=== PATIENT | male | born 1995 | race Caucasian/White ===

== ENCOUNTER 2017-06-13 11:54 | Emergency (ER) | payer OTHER, BC ==
[2017-06-13 11:58] VITALS: BP 130/83; PULSE 95; TEMP 98; BMI 16.9
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
== END 2017-06-13 12:17 | disposition home or self-care (01) ==
LOC: FER 11:54
DX: Z04.1 Encounter for examination and observation following transport accident (principal); J45.909 Unspecified asthma, uncomplicated; V43.52XA Car driver injured in collision with other type car in traffic accident, initial encounter; Y93.89 Activity, other specified; Y92.410 Unspecified street and highway as the place of occurrence of the external cause
CPT/HCPCS: 99282-25

== ENCOUNTER 2019-01-05 10:29 | Emergency (ER) | payer BC, OTHER ==
[2019-01-05 10:33] VITALS: BP 124/88; PULSE 96; TEMP 98.9; BMI 16.1
--- NOTE | 2019-01-05 11:01 | PDOC ---
History of Present Illness - General Chief Complaint: Rectal Bleed Stated Complaint: RECTAL BLEED Time Seen by Provider: 01/05/19 11:00 Past History - Past Medical History Allergies/Adverse Reactions: Allergies Allergy/AdvReac Type Severity Reaction Status Date / Time No Known Allergies Allergy Verified 01/05/19 10:30 Home Medications: Ambulatory Orders Albuterol 0.083% Nebulizer Joselyn [Ventolin 0.083%] 1 neb NEB QID PRN 01/05/19 Albuterol Sulfate Inhaler - [Ventolin Hfa Inhaler -] 1 - 2 inh PO QID PRN Asthma: Yes COPD: No - Suicide/Smoking/Psychosocial Hx Smoking History: Never smoked Have you smoked in the past 12 months: No Information on smoking cessation initiated: No Hx Alcohol Use: (once a month/social) Drug/Substance Use Hx: No Substance Use Type: Alcohol *Physical Exam - Vital Signs Last Vital Signs Temp Pulse Resp BP Pulse Ox 98.9 F 96 H 18 124/88 100 01/05/19 10:30 01/05/19 10:30 01/05/19 10:30 01/05/19 10:30 01/05/19 10:30 Moderate Sedation - Procedure Monitoring Vital Signs: Procedure Monitoring Vital Signs Temperature 98.9 F 01/05/19 10:30 Pulse Rate 96 H 01/05/19 10:30 Respiratory Rate 18 01/05/19 10:30 Blood Pressure 124/88 01/05/19 10:30 O2 Sat by Pulse Oximetry (%) 100 01/05/19 10:30 *DC/Admit/Observation/Transfer - Discharge Dispostion Condition at time of disposition: Stable - Referrals - Patient Instructions - Post Discharge Activity
--- NOTE | 2019-01-05 11:09 | PDOC ---
Attending Attestation - Resident Resident Name: Steven Ling - ED Attending Attestation I have performed the following: I have examined & evaluated the patient, The case was reviewed & discussed with the resident, I agree w/resident's findings & plan, Exceptions are as noted - HPI HPI: 01/05/19 12:14 Patient with blood-streaked stool this morning. Hard stool with painful defecation. No lightheadedness, dizziness, chest pain, shortness of breath, abdominal pain, tenesmus. - Physicial Exam PE: 01/05/19 12:15 Physical exam entirely normal except for the presence of external hemorrhoids, which do not appear to be actively bleeding. No internal masses or tenderness. Stool negative for occult blood. - Medical Decision Making 01/05/19 12:16 Assessment: Bleeding from external hemorrhoids. H&H normal. Stool for occult blood negative. No serious bleeding or blood loss. Plan: Stool softener, hydrocortisone containing rectal cream, sitz baths, and GI follow-up. Increase dietary fiber. Fully ambulatory and in no pain or other distress upon discharge
[2019-01-05 11:46] LABS: BASO % 0.6 % (0-2.0); EOS % 0.6 % (0-4.5); HEMATOCRIT 46.1 % (35.4-49); HEMOGLOBIN 15.3 GM/dl (11.7-16.9); LYMPH % 26.8 % (8-40); MCH 31.3 pg (25.7-33.7); MCHC 33.3 g/dl (32.0-35.9); MEAN CELL VOLUME 94.1 fl (80-96); MONO % 7.7 % (3.8-10.2); NEUT % 64.3 % (42.8-82.8); PLATELET COUNT 262 K/MM3 (134-434); RDW 11.7 % (11.9-15.9); WHITE BLOOD COUNT 4.5 K/mm3 (4.0-10.8)
[2019-01-05 11:50] LABS: ALBUMIN 5.1 g/dl (3.4-5.0); ALK PHOS 65 U/L (45-117); ANION GAP 11 MMOL/L (8-16); BILIRUBIN,TOTAL 1.7 mg/dl (0.2-1); BLOOD UREA NITROGEN 14 mg/dl (7-18); CALCIUM 9.5 mg/dl (8.5-10); CHLORIDE 100 mmol/L (98-107); CO2 26 mmol/L (21-32); CREATININE 0.6 mg/dl (0.55-1.3); GLUCOSE,RANDOM 96 mg/dl (74-106); POTASSIUM 4.7 mmol/L (3.5-5.1); SGOT/AST 22 U/L (15-37); SGPT/ALT 15 U/L (13-61); SODIUM 137 mmol/L (136-145); TOT PROT 7.7 g/dl (6.4-8.2)
--- NOTE | 2019-01-05 11:59 | PDOC ---
History of Present Illness - General Chief Complaint: Rectal Bleed Stated Complaint: RECTAL BLEED Time Seen by Provider: 01/05/19 11:00 History Source: Patient Exam Limitations: No Limitations - History of Present Illness Initial Comments: 01/05/19 11:54 23 yo male pmh of IBS and asthma presents to the ED for 1 episode of bright red blood per rectum. Pt states this am while have a bowel movement, he had excessive pain and noted bright red blood streaking on the stool and bright red blood when wiping. Pt admits to IBS with primarily constipation (controlled with probiotics) and a past hx with similar episode of blood in the stool. Pt has GI specialist, never had a colonoscopy and reported blood with past BM. Pt denies hx of hemorrhoids or fissures, N/V/F/C, abdominal pain, back pain or any further complaints. Past History - Past Medical History Allergies/Adverse Reactions: Allergies Allergy/AdvReac Type Severity Reaction Status Date / Time No Known Allergies Allergy Verified 01/05/19 10:30 Home Medications: Ambulatory Orders Albuterol 0.083% Nebulizer Joselyn [Ventolin 0.083%] 1 neb NEB QID PRN 01/05/19 Albuterol Sulfate Inhaler - [Ventolin Hfa Inhaler -] 1 - 2 inh PO QID PRN Asthma: Yes COPD: No - Suicide/Smoking/Psychosocial Hx Smoking History: Never smoked Have you smoked in the past 12 months: No Information on smoking cessation initiated: No Hx Alcohol Use: (once a month/social) Drug/Substance Use Hx: No Substance Use Type: Alcohol *Physical Exam - Vital Signs Last Vital Signs Temp Pulse Resp BP Pulse Ox 98.9 F 96 H 18 124/88 100 01/05/19 10:30 01/05/19 10:30 01/05/19 10:30 01/05/19 10:30 01/05/19 10:30 Moderate Sedation - Procedure Monitoring Vital Signs: Procedure Monitoring Vital Signs Temperature 98.9 F 01/05/19 10:30 Pulse Rate 96 H 01/05/19 10:30 Respiratory Rate 18 01/05/19 10:30 Blood Pressure 124/88 01/05/19 10:30 O2 Sat by Pulse Oximetry (%) 100 01/05/19 10:30 ED Treatment Course - LABORATORY CBC & Chemistry Diagram: 01/05/19 11:28 02/15/19 11:25 *DC/Admit/Observation/Transfer Diagnosis at time of Disposition: Rectal bleed - Discharge Dispostion Disposition: HOME Condition at time of disposition: Stable Decision to Admit order: No - Referrals - Patient Instructions Printed Discharge Instructions: DI for Hemorrhoids, DI for Rectal Bleeding Additional Instructions: Please make a follow up appointment with your primary care doctor and Clerical Manager within the next 48 hours. Increase fiber in your diet, use stool softeners, sitz bath and over the counter cream for hemorrhoids. Return to the ER for continued profuse blood with bowel movements, generalized weakness /lethargy/confusion, abdominal pain. Thank you - Post Discharge Activity Forms/Work/School Notes: Back to Work
== END 2019-01-05 12:40 | disposition home or self-care (01) ==
LOC: FER 10:29
DX: K62.5 Hemorrhage of anus and rectum (principal); J45.909 Unspecified asthma, uncomplicated
CPT/HCPCS: 36415; 80053; 82272; 85025; 99283-25